=== PATIENT | male | born 1955 | race Caucasian/White ===

== ENCOUNTER → 2023-07-05 11:11 | Outpatient (REF) | payer BC, SELFPAY | LOC: DHCBC/DCA 11:11 | PROVIDERS: ATTENDING PHYSICIAN Internal Medicine Cardiovascular Disease; FAMILY PHYSICIAN Internal Medicine | DX: R07.89 Other chest pain (principal) | CPT/HCPCS: 78452; 93017; A9500 ==

== ENCOUNTER → 2023-07-13 07:58 | Outpatient (REF) | payer BC, SELFPAY | LOC: HWRCS 07:58 | PROVIDERS: ATTENDING PHYSICIAN Internal Medicine Cardiovascular Disease; FAMILY PHYSICIAN Internal Medicine | DX: R07.89 Other chest pain (principal) | CPT/HCPCS: 93306 ==

== ENCOUNTER → 2023-07-13 09:21 | Outpatient (REF) | payer SELFPAY | LOC: HWRAD 09:21 | PROVIDERS: ATTENDING PHYSICIAN Internal Medicine Cardiovascular Disease; FAMILY PHYSICIAN Internal Medicine | DX: R07.89 Other chest pain (principal) | CPT/HCPCS: 75571 ==

== ENCOUNTER → 2024-11-10 13:04 | Outpatient (REF) | payer BC, SELFPAY | LOC: DHSLP 13:04 | PROVIDERS: ATTENDING PHYSICIAN Family Medicine | DX: G47.33 Obstructive sleep apnea (adult) (pediatric) (principal) | CPT/HCPCS: 95800 ==